=== PATIENT | male | born 1940 | race Caucasian/White ===

== ENCOUNTER 2024-04-26 09:57 | Emergency (ER) | payer MEDICAID ==
[~2024-04-26] VITALS: Ht 162.6 cm; Wt 74.8 kg
[2024-04-26 10:48] LABS: BASOPHILS % (AUTO) 0.2 % (0.0-2.0); EOSINOPHILS # (AUTO) 0.2 K/uL (0.0-0.7); EOSINOPHILS % (AUTO) 1.1 % (0.0-6.0); HEMATOCRIT 38 % (39-51); HEMOGLOBIN 12.4 g/dL (13.5-17.5); LYMPHOCYTES # (AUTO) 1.5 K/uL (0.8-4.8); LYMPHOCYTES % (AUTO) 10.7 % (20.0-44.0); MEAN CORPUSCULAR HEMOGLOBIN 28 PG (26.0-33.0); MEAN CORPUSCULAR HGB CONC 33 g/dl (31.0-36.0); MEAN CORPUSCULAR VOLUME 86 fL (80-96); MONOCYTES # (AUTO) 0.6 K/uL (0.1-1.30); MONOCYTES % (AUTO) 4.5 % (2.0-12.0); NEUTROPHILS # (AUTO) 11.8 K/uL (1.8-8.9); NEUTROPHILS % (AUTO) 83.5 % (43.0-81.0); PLATELET COUNT (AUTO) 362 K/uL (150-450); RED BLOOD CELL COUNT(AUTO) 4.45 MIL/uL (4.5-6.0); RED CELL DISTRIBUTION WIDTH 15.7 % (11.5-15.0); WHITE BLOOD COUNT (AUTO) 14.2 K/uL (4.3-11.0)
[2024-04-26 10:58] LABS: POTASSIUM 3.8 mmol/L (3.5-5.1)
[2024-04-26 11:01] LABS: INR 1.1 (0.91-1.10); PARTIAL THROMBOPLASTIN TIME 24.9 SEC (24.3-34.3); PROTHROMBIN TIME 11.6 SECS (9.2-11.1)
[2024-04-26 14:17] VITALS: TEMP 97.9
[2024-04-26 14:35] VITALS: BP 139/78; O2SAT 18
== END 2024-04-26 14:48 | disposition home or self-care (01) ==
LOC: EDBD 10:00 → ER 10:00
DX: R04.0 Epistaxis (principal); I10 Essential (primary) hypertension; Z60.2 Problems related to living alone
CPT/HCPCS: 99285; 30901; 85025; 80048; 36415; 85730; 86850; A4217

== ENCOUNTER 2024-04-29 09:40 | Emergency (ER) | payer MEDICAID ==
[~2024-04-29] VITALS: Ht 170.2 cm; Wt 80.7 kg
[2024-04-29] MEDS ORDERED: AMOX/CLAVULANATE 875 MG TABLET ONE (10:19)
[2024-04-29] MEDS: AMOX/CLAVULANATE 875 MG TABLET PO ONE (10:21)
[2024-04-29] MEDS ORDERED: AMOX-430 PO (10:50)
[2024-04-29 11:51] VITALS: BP 143/70; TEMP 98.1; O2SAT 98
== END 2024-04-29 12:04 | disposition home health service (06) ==
LOC: ER 09:46
DX: R04.0 Epistaxis (principal); I10 Essential (primary) hypertension